=== PATIENT | female | born 1960 | race Asian ===

== ENCOUNTER 2019-05-30 13:22 | Inpatient (IN) | payer OTHER ==
[~2019-05-30] VITALS: Ht 160 cm; Wt 59.2 kg
[2019-05-30 13:30] VITALS: BP 123/71
[2019-05-30] MEDS ORDERED: LOSA25TA43 PO (13:39)
[2019-05-30] MEDS ORDERED: ASPI-1173 PO (13:39)
[2019-05-30] MEDS ORDERED: SIMV80TA1 PO (13:39)
[2019-05-30] MEDS ORDERED: ORE25 PO (13:39)
[2019-05-30] MEDS ORDERED: NACL 0.9% 1,000 ML IV ONE (13:40)
--- NOTE | 2019-05-30 13:40 | NUR ---
58Y/F, BIBA FROM HER WORK FOR POSSIBLE SYNCOPAL EVENT, PT DOES NOT SPEAK POLISH, NIECE HERE AT BEDSIDE FOR INTERPRETATION, PER NIECE, PT C/O ABD PAIN WITH DIARRHEA THIS MORNING, ABOUT 2HR AGO SHE C/O WEAKNESS, NAUSEA, NO VOMITTING AND RIGHT ABDOMINAL PAIN THAT DOES NOT RADIATE. PT GCS 13, ANSWERS QUESTIONS APPROPRIATELY TO NIECE, NOTED REDNESS ON ABDOMINAL AREA, C/O 7/10 PAIN, VVS STABLE, RR EVEN UNLABORED. ED MD DR. SOLANO MADE AWARE, WILL CONTINUE TO MONITOR CLOSELY, BED IN LOWEST POSITION, BILATERAL SIDERAILS UP. PMH HTN, HLD
[2019-05-30 14:18] LABS: BASOPHILS % (AUTO) 0.1 % (0.0-2.0); EOSINOPHILS # (AUTO) 0.1 K/uL (0-0.4); HEMATOCRIT 39.3 % (36-48); HEMOGLOBIN 12.7 g/dL (12.0-16.0); LYMPHOCYTES # (AUTO) 1.6 K/uL (2.5-16.5); MEAN CORPUSCULAR HEMOGLOBIN 29 pg (27-31); MEAN CORPUSCULAR HGB CONC 32 g/dL (33-37); MEAN CORPUSCULAR VOLUME 89.7 fL (80-94); MONOCYTES # (AUTO) 0.9 K/uL (0.8-1.0); MONOCYTES % (AUTO) 6.7 % (1.7-9.3); NEUTROPHILS # (AUTO) 10.7 K/uL (1.8-7.7); NEUTROPHILS % (AUTO) 80.2 % (42.2-75.2); PLATELET COUNT (AUTO) 213 K/uL (140-450); RED BLOOD CELL COUNT(AUTO) 4.38 MIL/uL (4.20-5.40); WHITE BLOOD COUNT (AUTO) 13.4 K/uL (4.8-10.8)
[2019-05-30 14:24] LABS: APPEARANCE,URINE CLEAR (CLEAR); BILIRUBIN,URINE NEGATIVE (NEGATIVE); BLOOD, URINE NEGATIVE (NEGATIVE); COLOR,URINE YELLOW (YELLOW); LEUKOCYTE ESTERASE ,URINE TRACE (NEGATIVE); NITRITE, URINE NEGATIVE (NEGATIVE); PH,URINE 7.5 (5.0-9.0); UGLUCOSE NEGATIVE (NEGATIVE)
--- NOTE | 2019-05-30 14:30 | NUR ---
PT BROTHER AT BEDSIDE, PT RESTING, IN VVS AT THIS TIME, WILL CONTINUE TO MONITOR CLOSELY.
[2019-05-30 14:46] LABS: ALBUMIN 3.3 g/dL (3.4-5.0); ANION GAP 10.2 (8-16); CARBON DIOXIDE 29.2 mmol/L (21-32); CREATININE 0.9 mg/dL (0.6-1.3); TOTAL BILIRUBIN 0.5 mg/dL (0.0-1.0)
[2019-05-30 14:49] LABS: POTASSIUM 2.4 mmol/L (3.5-5.1)
[2019-05-30] MEDS ORDERED: KCL 20 MEQ/WATER INJ PREMIX 200 ML IV ONE (14:55)
[2019-05-30 15:00] LABS: RBC,URINE NONE SEEN /HPF (0-5); WBC,URINE 0-5 /HPF (0-5)
--- NOTE | 2019-05-30 16:02 | NUR ---
PT IN BED RESTING, WITH NIECE AT BEDSIDE, SEEN TALKING WITH NIECE AT THIS TIME VERBALIZED FEELING MUCH BETTER, VVS WILL CONTINUE TO MONITOR CLOSELY.
--- NOTE | 2019-05-30 16:20 | NUR ---
CALLED SSN/SSBN ASSISTANT NAVIGATOR MAMEY FOR ADMIT TO [facility]ST ROOM, SHE WILL CALL BACK WITH ROOM FOR PT .
--- NOTE | 2019-05-30 16:41 | NUR ---
3ND CALL TO SPORTS BOOKMAKER MAMEY FOR MST ROOM-ROOM GIVEN 113 .
[2019-05-30] MEDS ORDERED: diphenhydrAMINE 50 MG/ML VIAL IVP PRN (16:50)
[2019-05-30] MEDS ORDERED: ZOLPIDEM 5 MG TAB PO PRN (16:50)
[2019-05-30] MEDS ORDERED: BISACODYL 10 MG SUPP RC PRN (16:50)
[2019-05-30] MEDS ORDERED: cloNIDine 0.1 MG TAB PO PRN (16:50)
[2019-05-30] MEDS ORDERED: ACETAMINOPHEN 325 MG TAB PO PRN (16:50)
[2019-05-30] MEDS ORDERED: ACETAMINOPHEN 650 MG SUPP RC PRN (16:50)
[2019-05-30] MEDS ORDERED: ONDANSETRON 4 MG/2 ML VIAL IVP PRN (16:50)
[2019-05-30] MEDS ORDERED: MAG SULF 2000 MG/WATER PREMIX 50 ML IV PRN (16:50)
[2019-05-30] MEDS ORDERED: ALBUTEROL 0.083% 2.5 MG/3 ML NEBU INH PRN (16:50)
[2019-05-30] MEDS ORDERED: IPRATROPIUM 0.02% 0.5 MG/2.5 ML NEBU INH PRN (16:50)
[2019-05-30] MEDS ORDERED: POTASSIUM CHLORIDE 10 MEQ TABER PO PRN (16:50)
[2019-05-30] MEDS ORDERED: LORazepam 2 MG/ML VIAL IVP PRN (16:50)
[2019-05-30] MEDS ORDERED: MAGNESIUM OXIDE 400 MG TAB PO PRN (16:50)
[2019-05-30] MEDS ORDERED: guaiFENesin DM 200/20 MG-10 ML 10 ML UDC PO PRN (16:50)
[2019-05-30] MEDS ORDERED: POTASSIUM CHLORIDE 40 MEQ, LIDOCAINE 1% 25 MG in NACL 0.9% 250 ML IV PRN (16:50)
[2019-05-30] MEDS ORDERED: ALUMINUM HYD/MAG/SIMETHICONE 30 ML UDC PO PRN (16:50)
[2019-05-30] MEDS ORDERED: HYDROcodone/APAP 5/325 MG 1 TAB TAB PO PRN ×2 (16:50)
[2019-05-30] MEDS ORDERED: SODIUM PHOSPHATE 118 ML ENEM RC PRN (16:50)
[2019-05-30] MEDS ORDERED: DOCUSATE SODIUM 250 MG GELCAP PO PRN (16:50)
--- NOTE | 2019-05-30 17:00 | NUR ---
Pt transferred to Med/Surg via .
--- NOTE | 2019-05-30 17:15 | NUR ---
Pt admitted from ER to room 113 via gurney. Able to amb to bed with steady gait. Bedside report received from ER nurse Freya. Pt aaox4, iraqi speaking, Greta (niece) at bedside translating iraqi/mozambican per pt request. Left AC IV intact with ongoing NS @ 100ml/hr & K-rider at 10mEq/hr (50ml/hr). Pt c/o burning sensation to IV site. K-rider infusion decreased to 30ml/hr. Pt verbalized feeling relief of burning. Pt oriented to room & unit, verbalized understanding. Call light within reach. Niece remains at bedside.
--- NOTE | 2019-05-30 17:15 | NUR ---
Patient will be admitted to care of DR. NICOLE. Admited to MEDICAL SURGICAL UNIT. Will go to room 113. Belongings list completed. BEDSIDE Report to RUPESH VIGIL.
[2019-05-30] MEDS: NACL 0.9% 1,000 ML IV SCH (17:20)
[2019-05-30 18:20] VITALS: BP 115/60
--- NOTE | 2019-05-30 19:15 | NUR ---
Pt endorsed to RUPESH Tuttle. Pt in bed resting comfortably. Niece at bedside. IV to L forearm with fluids infusing. No signs of redness or infiltration at IV site. Environment free of clutter. Pt shows no signs of acute distress at this time.
--- NOTE | 2019-05-30 19:17 | NUR ---
RECEIVED REPORT FROM DAY SHIFT NURSE. AAOX4. NO C/O PAIN AT THIS TIME. NO SOB NOTED. ON ROOM AIR. IV TO LEFT AC #20G, PATENT AND INTACT. SKIN INTACT. NIECE AT BEDSIDE. SAFETY PRECAUTION IN PLACE. CALL LIGHT WITHIN REACH.
[2019-05-30 20:00] VITALS: BP 106/53
[2019-05-30] MEDS: CIPROFLOXACIN 250 MG TAB PO SCH (21:21)
[2019-05-30] MEDS: metroNIDAZOLE 500 MG/NS PREMIX 100 ML IV SCH (21:22)
--- NOTE | 2019-05-30 21:30 | NUR ---
DUE MEDS GIVEN. PT TOLERATED WELL. PT DENIES NAUSEA/VOMITING. NO DIARRHEA/BM NOTED.
--- NOTE | 2019-05-30 23:38 | NUR ---
PT RESTING IN BED. DENIES PAIN, NAUSEA OR VOMITING. ALL NEEDS ATTENDED AT THIS TIME. CALL LIGHT WITHIN REACH. NIECE AT BEDSIDE.
[2019-05-31 00:30] VITALS: BP 100/54
--- NOTE | 2019-05-31 02:00 | NUR ---
PT SLEEPING. NO S/S OF PAIN OR DISCOMFORT. NO S/S OF RESP DISTRESS. CALL LIGHT WITHIN REACH.
[2019-05-31] MEDS: NACL 0.9% 1,000 ML IV SCH ×3 (02:38→20:29)
--- NOTE | 2019-05-31 04:45 | NUR ---
PT SLEEPING BUT EASILY AROUSABLE. RESP EVEN AND UNLABORED. NO S/S OF PAIN OR DISCOMFORT. IVF INFUSING WELL. CALL LIGHT WITHIN REACH.
--- NOTE | 2019-05-31 06:20 | NUR ---
PT LYING IN BED, AWAKE. DENIES PAIN, NAUSEA AND VOMITING. NO BM NOTED THE WHOLE SHIFT.
--- NOTE | 2019-05-31 07:04 | NUR ---
PATIENT HAS BEEN SCREENED AND CATEGORIZED HIGH NUTRITION RISK. PATIENT WILL BE SEEN WITHIN 1-2 DAYS OF ADMISSION. 05/31/19-06/01/19 JEWEL SÁNCHEZ MS, RDN
--- NOTE | 2019-05-31 07:25 | NUR ---
ENDORSED PT TO DAY SHIFT NURSE. PT IN STABLE CONDITION.
--- NOTE | 2019-05-31 07:30 | NUR ---
RECEIVED HAND OFF REPORT FROM PM RN PT AWAKE IN BED, NIECE AT BEDSIDE. IV RUNNING IV SITE PATENT WITH NO SIGNS OF INFILTRATION ALL SAFETY MEASURES ARE IN PLACE WILL CONTINUE TO MONITOR
[2019-05-31 08:12] LABS: BASOPHILS % (AUTO) 0.3 % (0.0-2.0); EOSINOPHILS % (AUTO) 0.3 % (0.0-4.0); HEMATOCRIT 33.9 % (36-48); HEMOGLOBIN 11.2 g/dL (12.0-16.0); LYMPHOCYTES # (AUTO) 1.8 K/uL (2.5-16.5); LYMPHOCYTES % (AUTO) 27.8 % (20.5-51.1); MEAN CORPUSCULAR HEMOGLOBIN 30 pg (27-31); MEAN CORPUSCULAR HGB CONC 33 g/dL (33-37); MEAN CORPUSCULAR VOLUME 89.2 fL (80-94); MONOCYTES # (AUTO) 0.3 K/uL (0.8-1.0); MONOCYTES % (AUTO) 4.8 % (1.7-9.3); NEUTROPHILS # (AUTO) 4.2 K/uL (1.8-7.7); NEUTROPHILS % (AUTO) 66.8 % (42.2-75.2); PLATELET COUNT (AUTO) 185 K/uL (140-450); RED CELL DISTRIBUTION WIDTH 13.9 % (11.6-13.7); WHITE BLOOD COUNT (AUTO) 6.3 K/uL (4.8-10.8)
[2019-05-31 08:14] LABS: ANION GAP 7.8 (8-16); CREATININE 0.7 mg/dL (0.6-1.3)
[2019-05-31] MEDS: ASPIRIN 81 MG TAB.CHEW PO SCH (08:20)
[2019-05-31] MEDS: CIPROFLOXACIN 250 MG TAB PO SCH ×2 (08:20→20:26)
[2019-05-31] MEDS: metroNIDAZOLE 500 MG/NS PREMIX 100 ML IV SCH ×2 (08:21→20:27)
[2019-05-31 08:30] LABS: POTASSIUM 2.8 mmol/L (3.5-5.1)
[2019-05-31 08:35] VITALS: BP 86/52
--- NOTE | 2019-05-31 08:50 | NUR ---
LAB CALLED POTASSIUM. 2.8 K TRENDING UP ADMINISTERED POTASSIUM PRN 40 MEQ
--- NOTE | 2019-05-31 10:08 | NUR ---
PT COMPLAINED OF NAUSEA PT APPEARED SLIGHTLY DIAPHORETIC. TOOK BP BP LOW PT HR WAS 56 CHECKED PT BLOOD SUGAR. FINGER STICK GLUCOSE WAS 106. DR. NICOLE AT BEDSIDE. STATED BOLUS 1L NS. AND PLACE PT ON TELEMETRY. DR. NICOLE ALSO ORDERED CT OF THE ABD/PELVIS
[2019-05-31] MEDS ORDERED: MAG SULF 2000 MG/WATER PREMIX 50 ML IV SCH (10:30)
[2019-05-31] MEDS ORDERED: NACL 0.9% 1,000 ML IV SCH (10:30)
--- NOTE | 2019-05-31 10:39 | NUR ---
PT ISABEL LOCKED AND OFF THE UNIT FOR CT OF ABD/PELVIS
--- NOTE | 2019-05-31 11:28 | NUR ---
PT BACK ON THE UNIT PT FAMILY AT BEDSIDE. PT BL 93/50 PT NO LONGER COMPLAINS OF NAUSEA. CONNECTED IV IV FLUIDS RUNNING AT 100ML/HR. HUNG MAG RIDER 25ML/HR. ON PRIMARY LINE ALL SAFETY MEASURES ARE IN PLACE
[2019-05-31] MEDS ORDERED: KCL 20 MEQ/WATER INJ PREMIX 100 ML IV SCH (13:00)
--- NOTE | 2019-05-31 17:54 | NUR ---
PT APPEARS STABLE IN NO APPARENT DISTRESS. ALL SAFETY MEASURES ARE IN PLACE
[2019-05-31 18:15] VITALS: BP 92/53
--- NOTE | 2019-05-31 19:37 | NUR ---
ENDORSED PT TO PM RN. PT APPEARS STABLE AND IN NO APPARENT DISTRESS. ALL SAFETY MEASURES IN PLACE, IVF INFUSING IV SITE PATENT AND IN NO APPARENT DISTRESS.
--- NOTE | 2019-05-31 19:38 | NUR ---
ASSUMED CARE OF PATIENT AT THIS TIME. RECEIVED REPORT FROM RUPESH HOLLOWAY AT THIS TIME. PATIENT IS AAOX4, ON ROOM AIR. PATIENT IS ABLE TO FOLLOW COMMANDS, AND ABLE TO MAKE NEEDS KNOWN. PATIENT IS AMBULATORY AND IS ABLE TO REPOSITION SELF IN BED. ENCOURAGE Q2H REPOSITIONING. SKIN IS INTACT. PT HAS A 20G IV TO LEFT AC INFUSING IVF(NS). BLOOD PRESSURE ON THE LOWER SIDE BUT STILL WNL. VITAL SIGNS ARE STABLE. FLACC 0. ORIENTED PT TO ROOM AND SAFETY. BED IN LOWEST POSITION, CALL LIGHT WITHIN REACH. WILL CONTINUE TO MONITOR.
--- NOTE | 2019-05-31 20:30 | NUR ---
ADMINISTERED SCHEDULED MEDICATIONS, PT TOLERATED WELL. BED LEFT IN LOWEST POSITION WITH CALL LIGHT WITHIN REACH. WILL CONTINUE TO MONITOR PATIENT.
[2019-06-01] VITALS: BP 92/44
--- NOTE | 2019-06-01 | NUR ---
VITAL SIGNS ARE STABLE. DENIES HAVING PAIN. BED IN LOWEST POSITION, CALL LIGHT WITHIN REACH. WILL CONTINUE TO MONITOR.
--- NOTE | 2019-06-01 03:10 | NUR ---
DENIES HAVING PAIN. BED IN LOWEST POSITION, CALL LIGHT WITHIN REACH. WILL CONTINUE TO MONITOR.
[2019-06-01] MEDS: NACL 0.9% 1,000 ML IV SCH (03:15)
--- NOTE | 2019-06-01 05:53 | NUR ---
PT STILL RESTING. DENIES HAVING PAIN. BED IN LOWEST POSITION, CALL LIGHT WITHIN REACH. WILL CONTINUE TO MONITOR.
--- NOTE | 2019-06-01 06:17 | NUR ---
ENDORSED CARE OF PT TO RN AT THIS TIME. PT IN STABLE CONDITION.
--- NOTE | 2019-06-01 06:18 | NUR ---
RECEIVED PT IN STABLE CONDITION NO DISTRESS NOTED, CALL LIGHT WITHIN REACH, FAMILY AT BEDSIDE.
[2019-06-01 07:00] LABS: ANION GAP 11.1 (8-16); CARBON DIOXIDE 24.7 mmol/L (21-32); CREATININE 0.7 mg/dL (0.6-1.3); POTASSIUM 3.8 mmol/L (3.5-5.1)
[2019-06-01 07:21] LABS: BASOPHILS % (AUTO) 0.5 % (0.0-2.0); EOSINOPHILS # (AUTO) 0.2 K/uL (0-0.4); EOSINOPHILS % (AUTO) 2.7 % (0.0-4.0); HEMATOCRIT 31.7 % (36-48); HEMOGLOBIN 10.5 g/dL (12.0-16.0); LYMPHOCYTES % (AUTO) 29.5 % (20.5-51.1); MEAN CORPUSCULAR HEMOGLOBIN 30 pg (27-31); MEAN CORPUSCULAR HGB CONC 33 g/dL (33-37); MEAN CORPUSCULAR VOLUME 89.6 fL (80-94); MONOCYTES # (AUTO) 0.5 K/uL (0.8-1.0); MONOCYTES % (AUTO) 7.2 % (1.7-9.3); NEUTROPHILS # (AUTO) 4.2 K/uL (1.8-7.7); NEUTROPHILS % (AUTO) 60.1 % (42.2-75.2); PLATELET COUNT (AUTO) 168 K/uL (140-450); RED BLOOD CELL COUNT(AUTO) 3.54 MIL/uL (4.20-5.40); RED CELL DISTRIBUTION WIDTH 14.2 % (11.6-13.7); WHITE BLOOD COUNT (AUTO) 6.9 K/uL (4.8-10.8)
--- NOTE | 2019-06-01 07:30 | NUR ---
ENDORSED PT TO DAY SHIFT, PT RESTING, NO DISTRESS NOTED, CALL LIGHT WITHIN REACH
--- NOTE | 2019-06-01 07:30 | NUR ---
RECEIVED BEDSIDE REPORT FROM HYDRAULIC CORRUGATING MACHINE OPERATOR NURSE. PATIENT AWAKE AND RESTING ON BED AT THIS TIME. AROUSABLE TO VOICE. PATIENT IS AAOX4, SPEAKS FRENCH ONLY, ABLE TO FOLLOW SIMPLE COMMAND AND MAKE NEED KNOWN. RESPIRATION EVEN AND UNLABORED ON RA. LUNGS SOUND CLEAR. PATIENT DENIED PAIN AND SOB. NO SIGNS OF DISTRESS NOTED. IV ON LAC 20G, CLEAN AND INTACT, INFUSING PER MD ORDER. SKIN INTACT AND CLEAN. PATIENT IS CONTINENT AND ABLE TO AMBULATE. DAUGHTER ADARSH BY BEDSIDE AND ABLE TO UNDERSTAND [place]. DISCUSSED PLAN OF CARE WITH PATIENT AND ADARSH AND BOTH VERBALIZED UNDERSTANDING. SAFETY MEASURES IN PLACE. BED IN LOW POSITION AND CALL LIGHT WITHIN REACH. INSTRUCTED PATIENT TO USE THE CALL LIGHT FOR ANY ASSISTANCE AND PATIENT WAS AWARE. CONTACT PRECAUTION IN PLACE AND SIGN POSTED. INSTRUCTED CORDELL ALTAMIRANO TO PUT ON PPE AT ALL TIME IN PT'S ROOM.
[2019-06-01 08:00] VITALS: BP 102/62
[2019-06-01] MEDS: CIPROFLOXACIN 250 MG TAB PO SCH (10:03)
[2019-06-01] MEDS: ASPIRIN 81 MG TAB.CHEW PO SCH (10:03)
--- NOTE | 2019-06-01 10:03 | NUR ---
ADMINISTERED MEDS PER MD ORDER, PATIENT TOLERATED WELL. MEDS EDUCATION PROVIDED TO PATIENT AND SON LIGIA AT BEDSIDE, BOTH VERBALIZED UNDERSTANDING. INSTRUCTED SON LIGIA TO PUT ON PPE AT ALL TIME IN PATIENT'S ROOM DUE MATTHEW-DIFF PRECAUTION, DISEASE EDUCATION PROVIDED TO LIGIA AND LIGIA VERBALIZED UNDERSTANDING. PT AWAKE AND RESTING ON BED AT THIS TIME. DENIED PAIN. NO SIGNS OF DISTRESS NOTED. SAFETY MEASURES IN PLACE. BED IN LOW POSITION AND CALL LIGHT WITHIN REACH. INSTRUCTED PATIENT TO USE THE CALL LIGHT FOR ANY ASSISTANCE AND PATIENT WAS AWARE.
[2019-06-01] MEDS: metroNIDAZOLE 500 MG/NS PREMIX 100 ML IV SCH (10:17)
--- NOTE | 2019-06-01 11:05 | NUR ---
DR NICOLE IS TALKING TO PATIENT AND PATIENT'S SON LIGIA AT BEDSIDE. PER DR NICOLE, PT'S MAG LEVEL 1.6L AND CORA OXIDE PO IS NOT ENOUGH TO COVER, HE WILL ORDER MAG-2GM VIA IV. PATIENT AWAKE AND RESTING ON BED AT THIS TIME. DENIED PAIN. NO SIGNS OF DISTRESS NOTED. SAFETY MEASURES IN PLACE. BED IN LOW POSITION AND CALL LIGHT WITHIN REACH. INSTRUCTED PATIENT TO USE THE CALL LIGHT FOR ANY ASSISTANCE AND PATIENT WAS AWARE.
--- NOTE | 2019-06-01 11:16 | NUR ---
NOTIFIED PATIENT AND PATIENT'S ON LIGIA THAT DC ORDER HAS BEEN RECEIVED AND MAG 2GM SCHEDULE AT 1300. WILL ADMINISTER MAG, ONCE FINISH AROUND 1530, WILL DC PT. PATIENT AND SON LIGIA BOTH AWARE AND VERBALIZED UNDERSTANDING. PATIENT AWAKE AND RESTING ON BED AT THIS TIME. DENIED PAIN. NO SIGNS OF DISTRESS NOTED. SAFETY MEASURES IN PLACE. BED IN LOW POSITION AND CALL LIGHT WITHIN REACH. INSTRUCTED PATIENT TO USE THE CALL LIGHT FOR ANY ASSISTANCE AND PATIENT WAS AWARE.
[2019-06-01] MEDS ORDERED: METR250T2 PO (11:19)
[2019-06-01] MEDS ORDERED: LEVO750T2 PO (11:19)
[2019-06-01] MEDS ORDERED: MAG SULF 2000 MG/WATER PREMIX 50 ML IV SCH (13:00)
--- NOTE | 2019-06-01 13:04 | NUR ---
PATIENT AWAKE AND RESTING ON BED. ADMINISTERED MAG PER MD ORDER, MED EDUCATION PROVIDED TO PATIENT AND PATIENT VERBALIZED OK. PATIENT DENIED PAIN. NO SIGNS OF DISTRESS NOTED. SAFETY MEASURES IN PLACE. BED IN LOW POSITION AND CALL LIGHT WITHIN REACH. INSTRUCTED PATIENT TO USE THE CALL LIGHT FOR ANY ASSISTANCE AND PATIENT WAS AWARE.
--- NOTE | 2019-06-01 14:21 | NUR ---
PATIENT AWAKE AND RESTING ON BED AT THIS TIME. MAG IS STILL INFUSING PER MD ORDER. PATIENT DENIED PAIN, DIZZY, VOMITING. RESPIRATION EVEN AND UNLABORED ON RA. NO SIGNS OF DISTRESS NOTED. SAFETY MEASURES IN PLACE. BED IN LOW POSITION AND CALL LIGHT WITHIN REACH. INSTRUCTED PATIENT TO USE THE CALL LIGHT FOR ANY ASSISTANCE AND PATIENT WAS AWARE.
--- NOTE | 2019-06-01 15:00 | NUR ---
MAG IVPB IS STILL INFUSING AT THIS TIME. PATIENT AWAKE AND RESTING ON BED. DENIED PAIN. NO SIGNS OF DISTRESS NOTED. SAFETY MEASURES IN PLACE. BED IN LOW POSITION AND CALL LIGHT WITHIN REACH. INSTRUCTED PATIENT TO USE THE CALL LIGHT FOR ANY ASSISTANCE AND PATIENT WAS AWARE.
--- NOTE | 2019-06-01 15:08 | NUR ---
06/01/19 RD INITIAL ASSESSMENT COMPLETED PLEASE REFER TO NUTRITION ASSESSMENT UNDER CARE ACTIVITY FOR ESTIMATED NUTRITIONAL NEEDS. 1. CONTINUE FULL LIQUID DIET TOLERATED 2. ADVANCE TO NA2GM DIET WHEN MEDICALLY STABLE 3. RD TO FOLLOW-UP 3-5 DAYS, MODERATE RISK RAVIN BERRY, RD
--- NOTE | 2019-06-01 15:14 | NUR ---
PT AWAKE AND TALKING ON THE PHONE. DENIED PAIN. NO SIGNS OF DISTRESS NOTED. SAFETY MEASURES IN PLACE. BED IN LOW POSITION AND CALL LIGHT WITHIN REACH. INSTRUCTED PATIENT TO USE THE CALL LIGHT FOR ANY ASSISTANCE AND PATIENT WAS AWARE. AWAITING FOR FAMILY TO ARRIVE TO THE HOSPITAL FOR DISCHARGE.
--- NOTE | 2019-06-01 15:24 | NUR ---
PT'S SON LIGIA ARRIVED TO THE [facility]. Addendum: 06/01/19 at 1540 by Jaylene Morales RN
--- NOTE | 2019-06-01 15:38 | NUR ---
DISCHARGE INSTRUCTION PROVIDED TO PATIENT AND BROTHER LIGIA AT BEDSIDE. EDUCATED PATIENT ON FOLLOW UP WITH MD, SEEK MEDICAL HELP DURING EMERGENCY, DISEASE MANAGEMENT, MEDICATION EDUCATION, SIDE EFFECTS AND DIET REGIMEN. ANSWERED ALL PATIENT'S AND BROTHER LIGIA'S QUESTIONS, ALL VERBALIZED UNDERSTANDING. DC IV AND CANNULA INTACT, MINIMAL BLEEDING AT IV SITE. REMOVED ALL ARM BAND. PATIENT CHANGED INTO HER OWN CLOTHES. PATIENT TOOK ALL HER BELONGINGS. COLLATOR ESCORTED PATIENT TO THE FRONT LOBBY WITH THE WHEEL CHAIR. PATIENT IS GOING TO DISCHARGE AT THIS TIME ACCOMPANY BY BROTHLYNN STRONG. PATIENT IS IN STABLE CONDITION.
== END 2019-06-01 15:38 | disposition home or self-care (01) | DRG 244 ==
LOC: MED 13:22 → MTU 16:14
PROVIDERS: ADMIT Internal Medicine Pulmonary Disease; ATTEND Internal Medicine Pulmonary Disease
DX: K57.92 Diverticulitis of intestine, part unspecified, without perforation or abscess without bleeding (principal); E83.42 Hypomagnesemia; K52.9 Noninfective gastroenteritis and colitis, unspecified; E86.0 Dehydration; E87.6 Hypokalemia; I10 Essential (primary) hypertension; D72.829 Elevated white blood cell count, unspecified; Z88.5 Allergy status to narcotic agent
CPT/HCPCS: 36415; 80048; 80053; 81001; 82150; 82948; 83690; 83735; 85025; 87070; 87081; 96361; 96365; 99285; J2405; J3475; J3480; J3490; J7030